=== PATIENT | male | born 1955 | race Caucasian/White ===

== ENCOUNTER → 2016-12-04 | Outpatient (CLI) | payer BC ==
[~2016-12-04] MED LIST: ADVIL 200MG TA200 MG PO; FISH OIL CONC1000 MG PO
== END ==
LOC: COL.RAD 10:03
DX: M51.26 Other intervertebral disc displacement, lumbar region (principal); M47.896 Other spondylosis, lumbar region
CPT/HCPCS: A9585

== ENCOUNTER → 2018-04-08 | Outpatient (CLI) | payer BC | LOC: COL.RAD 08:38 | DX: M25.851 Other specified joint disorders, right hip (principal) | CPT/HCPCS: J3301; Q9967 ==

== ENCOUNTER → 2018-07-21 | Outpatient (CLI) | payer BC | LOC: COL.RAD 12:19 | DX: M16.11 Unilateral primary osteoarthritis, right hip (principal) | CPT/HCPCS: J3301; Q9967 ==

== ENCOUNTER → 2018-09-15 | Outpatient (CLI) | payer BC | LOC: COL.RAD 09-14 08:30 | DX: M25.551 Pain in right hip (principal) | CPT/HCPCS: J3301; Q9967 ==

== ENCOUNTER 2018-10-01 06:57 | Day surgery (SDC) | payer BC ==
[~2018-10-01] VITALS: Ht 193 cm; Wt 153.0 kg
[2018-10-01] MEDS ORDERED: MOBIC15 MG PO (07:27)
[2018-10-01] MEDS ORDERED: ULTRAM 50MG TAB50 MG PO (07:27)
[2018-10-01] MEDS ORDERED: PRINZIDE 12.5 M1 TAB PO (07:28)
[2018-10-01] MEDS ORDERED: TURMERIC500 MG PO (07:28)
[2018-10-01] MEDS ORDERED: ASPIRIN 81M81 MG/TA2 PO (07:28)
[2018-10-01 07:29] VITALS: BP 122/83; PULSE 93; TEMP 98.1
[2018-10-01 09:00] VITALS: BP 110/70; PULSE 88; TEMP 98.5
--- NOTE | 2018-10-01 09:00 | NUR ---
Pt to [facility] via cart from ENDO. Pt awake and alert. Pt ambulates to recliner with stand by assistance. Warm blanket given. in room. Juice and muffin provided per pt request. Will continue to monitor. Call light within reach.
[2018-10-01 09:15] VITALS: BP 97/61; PULSE 98
--- NOTE | 2018-10-01 09:15 | NUR ---
Pt tolerating food and fluids without difficulties. Will continue to monitor. Call light within reach.
[2018-10-01 09:30] VITALS: BP 102/71; PULSE 98
--- NOTE | 2018-10-01 09:30 | NUR ---
Pt continues to rest. Denies needs. Call light within reach.
[2018-10-01 09:45] VITALS: BP 107/60; PULSE 84
--- NOTE | 2018-10-01 09:45 | NUR ---
Pt continues to rest. Denies needs. Call light within reach.
--- NOTE | 2018-10-01 09:56 | NUR ---
Discharge instructions reviewed. Pt voices understanding. IV site discontinued with all parts intact. Pt up to dress. Call light within reach.
--- NOTE | 2018-10-01 10:00 | NUR ---
Pt escorted to private car via wheel chair. Pt accompanied home by his .
== END 2018-10-01 10:00 | disposition home or self-care (01) ==
LOC: SDCO 06:57
DX: Z12.11 Encounter for screening for malignant neoplasm of colon (principal); D12.5 Benign neoplasm of sigmoid colon; D12.3 Benign neoplasm of transverse colon; I10 Essential (primary) hypertension
CPT/HCPCS: J2250; J2405; J3010; J7030